=== PATIENT | female | born 1945 | race Caucasian/White ===

== ENCOUNTER 2024-11-20 16:15 | Emergency (ER) | payer MEDICARE, MEDICAID, SELFPAY ==
[2024-11-20] VITALS (33 sets, daily range): BP systolic 84–134; BP diastolic 41–112; PULSE 73–132; RESP 15–33; TEMP 36.5–36.8; O2SAT 90–96; BMI 31.6
--- NOTE | 2024-11-20 16:58 | EX.ED.DYSGE1 ---
HPI History of Present Illness Chief Complaint: Abn Labs [facility] Medical History (Updated 11/20/24 @ 16:25 by Kumar Stratton) Urinary incontinence Atrial fibrillation Heart failure Dementia Type 2 diabetes mellitus with diabetic neuropathy, unspecified Chronic kidney disease, stage 2 (mild) Unspecified dementia, moderate, without behavioral disturbance, psychotic disturbance, mood disturbance, and anxiety Atherosclerotic heart disease of unga coronary artery without angina pectoris Home Medications ?Medication ?Instructions ?Recorded ?Last Taken ?Type apixaban 5 mg tablet (Eliquis) 5 mg PO BID 07/10/17 Unknown History citalopram 20 mg tablet 20 mg PO DAILY 07/10/17 Unknown History clopidogrel 75 mg tablet 75 mg PO DAILY 07/10/17 Unknown History furosemide 20 mg tablet 20 mg PO DAILY 07/10/17 Unknown History levothyroxine 50 mcg tablet 50 mcg PO DAILY 07/10/17 Unknown History lisinopril 40 mg tablet (Zestril) 40 mg PO DAILY 07/10/17 Unknown History metformin 850 mg tablet 850 mg PO BID 07/10/17 Unknown History metoprolol tartrate 50 mg tablet 50 mg PO DAILY 07/10/17 Unknown History Allergy/AdvReac Type Severity Reaction Status Date / Time No Known Allergies Allergy Verified 07/10/17 05:17 Social History Smoking Status: Never smoker EXAM Physical Exam Const Vital Signs: 11/20/24 16:15 11/20/24 16:21 11/20/24 16:27 Temperature 97.7 F L 97.7 F L Temperature Source Oral Oral Pulse Rate 93 93 Respiratory Rate 21 H 21 H Respiratory Effort Normal Respiratory Pattern Normal Blood Pressure 103/41 L 103/41 L Blood Pressure Mean 61 61 Pulse Ox 93 93 Oxygen Delivery Method Room Air Room Air 11/20/24 16:59 11/20/24 17:00 11/20/24 17:15 Temperature Temperature Source Pulse Rate 74 84 94 Respiratory Rate 16 17 17 Respiratory Effort Respiratory Pattern Blood Pressure 110/43 L Blood Pressure Mean 63 Pulse Ox 93 93 95 Oxygen Delivery Method 11/20/24 17:30 11/20/24 17:45 11/20/24 17:57 Temperature Temperature Source Pulse Rate 73 94 Respiratory Rate 16 18 Respiratory Effort Respiratory Pattern Blood Pressure 100/49 L 92/59 L Blood Pressure Mean 66 66 Pulse Ox 93 92 Oxygen Delivery Method Room Air Room Air 11/20/24 18:00 11/20/24 18:15 11/20/24 20:00 Temperature Temperature Source Pulse Rate 84 84 94 Respiratory Rate 15 18 16 Respiratory Effort Respiratory Pattern Blood Pressure 100/50 L 97/52 L 117/93 H Blood Pressure Mean 67 68 101 Pulse Ox 94 94 93 Oxygen Delivery Method Room Air 11/20/24 22:00 Temperature Temperature Source Pulse Rate 121 H Respiratory Rate 17 Respiratory Effort Respiratory Pattern Blood Pressure 107/62 Blood Pressure Mean 77 Pulse Ox 96 Oxygen Delivery Method Room Air MDM MDM MDM Narrative Medical decision making narrative: HISTORY OF PRESENT ILLNESS: 79-year-old female presents from [facility]. Per triage note patient is typically alert and oriented x 1 (self but not place or time). States patient is here for evaluation of elevated liver enzymes, BUN/creatinine. They note the patient is currently positive for influenza A and is on Tamiflu. REVIEW OF SYSTEMS: I cannot obtain a reliable review of system secondary to the patient's baseline dementia and alteration mental status PHYSICAL EXAM: Nursing triage notes reviewed, Vital signs reviewed Constitutional: please see mdm HENT: MMM Eyes: Pupils equal round and reactive to light, Extraocular muscles intact, no scleral icterus Neck: No stridor, no JVD, full neck ROM Lungs: Clear to auscultation, No wheezing or rales. No increased work of breathing, no conversational dyspnea, no accessory muscle use, no nasal flaring. No respiratory distress noted Heart: Regular rate and rhythm, No murmurs, No rubs and No gallops, 2+ distal pulses (radial, femoral, posterior tibial) in all extremities Abdomen: Soft, there was some elicited tenderness with palpation right upper quadrant. No apparent rigidity, rebound or guarding, no obvious peritoneal signs, no palpable pulsatile abdominal masses, no auscultated abdominal bruit : No CVAT Extremities: No edema Neuro: At baseline, alert and oriented x 1 (self but not place or time), no obvious cranial nerve deficits, moves all 4 extremities, appears to have sensation all 4 extremities, 2+ reflexes bilateral patella tendons. Skin: No rash or lesions noted, no jaundice MEDICAL DECISION MAKING: Chief Complaint: Abnormal labs External records reviewed: [facility]ed [facility] records: Reviewed recent laboratory evaluations Labs from today showed a BUN of 37, creatinine 1.4 (compared to labs from 11/13/2024 with a BUN of 29 creatinine 1.6) Showed AST of 227, ALT 59 alk phos 447, she is compared to labs from 11/13/2024 with AST 41, ALT of 18 alk phos 243) Factors affecting care: Dementia, A-fib on Eliquis, heart failure, type 2 diabetes, CKD 2, CAD Social determinants of health: elderly, jail resident History obtained from others: EMS Consults: Pharmacy - discussed tamiflu side effects including elevation in liver enzymes. MDM Narrative: The patient was initially hemodynamically stable, tachypneic at a respiratory rate of 21 otherwise saturating well 93% room air. Abdominal pain I considered the following differential diagnosis: Tamiflu induced transaminitis, baseline CKD, obstructive hepatobiliary disease I obtained a lab evaluation and right upper quadrant ultrasound to further assess the patient's hepatobiliary function ALL IMAGES (IF OBTAINED) HAVE BEEN PERSONALLY REVIEWED AND INTERPRETED BY MYSELF. CBC with leukocytosis suggestive of systemic inflammation, anemia, thrombocytopenia BMP with baseline CKD, no severe electrolyte abnormalities LFTs with elevation liver enzymes, no hyperbilirubinemia Lipase is wnl indicating no pancreatic inflammation. Right upper quadrant ultrasound was negative for acute surgical pathology I will recommend the patient discontinue Tamiflu as I suspected it is leading to a drug-induced hepatitis will request repeat labs in the next 2 to 3 days. The patient and/or family, caregivers express understanding. The patient and/or family, caregivers agrees with the plan. Shared decision making: I will have a discussion with the patient and or visitors regarding risk/benefits of further testing or admission. They will be made aware of of the risk/benefits inherent in this decision they will be given the opportunity to voice understanding. Total critical care time today provided was at least 0 minutes. This excludes separately billable procedures. Critical care time (if documented) is secondary to the patient having high probability of clinically significant/life threatening deterioration in the patient's condition which required my urgent intervention. Impression: 1. Influenza A 2. History of CKD 3. Drug-induced hepatitis Dispo: Discharge home This note was generated with [employer] dictation software. It may contain incorrect words, spelling, and punctuation that were not noted in review of the chart prior to signing. Lab Data Labs: Laboratory Results - last 24 hr 11/20/24 17:16 WBC 13.3 H RBC 3.85 L Hgb 11.9 L Hct 36.1 L MCV 93.8 MCH 30.9 MCHC 33.0 RDW Std Deviation 46.6 H RDW Coeff of Slim 13.7 Plt Count 248 MPV 11.0 Immature Gran % (Auto) 0.800 Neut % (Auto) 81.1 H Lymph % (Auto) 11.4 L Boyd % (Auto) 6.3 Eos % (Auto) 0.2 Baso % (Auto) 0.2 Absolute Neuts (auto) 10.7 H Absolute Lymphs (auto) 1.51 Nucleated RBC % 0 Sodium 133 Potassium 4.0 Chloride Direct 99 Carbon Dioxide 19.4 L Anion Gap 14 BUN 43 H Creatinine 1.69 H Estim Creat Clear Calc 26.60 Est GFR (MDRD) Non-Af 31 L BUN/Creatinine Ratio 25.7 H Glucose 123 H Calcium 8.5 Total Bilirubin 0.84 Direct Bilirubin 0.56 H AST 168 H ALT 62 H Alkaline Phosphatase 556 H Total Protein 6.7 Albumin 2.8 L Globulin 3.9 Lipase 21 Radiography Diagnostic Testing: Clinical Impression(s) from Imaging Studies Gallbladder Ultrasound 11/20/24 17:14 IMPRESSION: 1. Cholecystectomy with more than expected intrahepatic biliary dilatation. 2. Mild right hydronephrosis with renal atrophy. Reading [facility] Discharge Plan Triage Chief Complaint: Abn Labs ED Provider: Elliott Matias Dx/Rx/DC Orders Prescriptions: No Action metformin 850 MG tablet 850 mg PO BID clopidogrel 75 MG tablet 75 mg PO DAILY citalopram 20 MG tablet 20 mg PO DAILY levothyroxine 50 MCG tablet 50 mcg PO DAILY metoprolol tartrate 50 MG tablet 50 mg PO DAILY furosemide 20 MG tablet 20 mg PO DAILY lisinopril [Zestril] 40 MG tablet 40 mg PO DAILY apixaban [Eliquis] 5 MG tablet 5 mg PO BID Primary Care Provider: Care Physician,No Primary Referrals: [facility] Doctor,Out of [Non-Staff] - Print Language: Prydeinig
--- NOTE | 2024-11-20 17:14 | US_ITS ---
PROCEDURE: GALLBLADDER REASON FOR EXAM: Elevated liver enzymes COMPARISON: None FINDINGS: Study is limited to body habitus and bowel gas artifact Liver: Grossly normal size and echotexture. It measures 15.4 cm. Gallbladder: Surgically absent. There is more than expected intrahepatic biliary dilatation status post cholecystectomy Common bile duct: Normal measuring 3.7 mm. Pancreas: Visualized portions are sonographically unremarkable. The right kidney measures 7.2 x 2.9 x 3.4 cm and demonstrates atrophy and cortical thinning. There is also mild hydronephrosis no right upper quadrant ascites. US/Gallbladder IMPRESSION: 1. Cholecystectomy with more than expected intrahepatic biliary dilatation. 2. Mild right hydronephrosis with renal atrophy. Reading Location: [facility]
[2024-11-20] MEDS: Ondansetron 4 MG/2 ML Vial IV (17:19)
[2024-11-20 17:23] LABS: Absolute Lymphocyte Count 1.51 X10^3/uL (0.83-4.51); Absolute Neutrophil Count 10.7 X10^3/uL (2.0-7.7); Basophil# 0.03 X10^3/uL; Basophil% 0.2 % (0-1); Eosinophil# 0.03 X10^3/uL; Eosinophils% 0.2 % (0-5); Hematocrit 36.1 % (37-47); Hemoglobin 11.9 g/dL (12.0-15.0); Lymphocyte # 1.51 X10^3/ul (0.83-4.51); Lymphocyte % 11.4 % (19-41); Mean Corpuscular Hgb 30.9 pg (27.0-32.0); Mean Corpuscular Volume 93.8 fL (81-99); Monocyte# 0.83 X10^3/uL; Monocyte% 6.3 % (0-10); NRBC Flagged by Analyzer 0 % (0-5); Neutrophil # 10.74 X10^3/uL (2.7-7.7); Neutrophil % 81.1 % (47-70); Platelet Count 248 K/mm3 (150-450); RBC Distribution Width CV 13.7 % (11.6-14.6); RBC Distribution Width SD 46.6 fl (35.1-43.9); Red Blood Count 3.85 M/mm3 (4.2-5.4); White Blood Count 13.3 K/mm3 (4.4-11.0)
--- NOTE | 2024-11-20 17:25 | ED.RN ---
ATTEMPTED TO CALL [facility] FOR FACE SHEET AND MAR. NO ANSWER AT THIS TIME.
[2024-11-20 17:53] LABS: AST(SGOT) 168 U/L (<=31); Alanine Aminotransfer ALT/SGPT 62 U/L (<=34); Albumin, Serum 2.8 g/dL (3.4-4.8); Alkaline Phosphatase 556 U/L (35-104); Anion Gap 14 (5-15); BUN 43 mg/dL (4-19); BUN/Creat Ratio 25.7 RATIO (10-20); Bilirubin, Direct 0.56 mg/dL (0.00-0.30); Calcium 8.5 mg/dL (7.6-11.0); Carbon Dioxide 19.4 mmol/L (22.0-29.0); Chloride 99 mmol/L (96-108); Creatinine, Serum 1.69 mg/dL (0.70-1.20); EST Glomerular Filtration Rate 31 (>60); Globulin 3.9 g/dL (2.2-4.2); Glucose 123 mg/dL (70-99); Lipase 21 U/L (13-75); Protein, Total 6.7 g/dL (5.9-8.4); Sodium Level 133 mmol/L (133-145); Total Bilirubin 0.84 mg/dL (0.00-1.30)
--- NOTE | 2024-11-20 18:16 | ED.RN ---
SPOKE W/ [facility]. THEY WILL FAX A FACE SHEET AND MAR
--- NOTE | 2024-11-20 19:02 | ED.RN ---
190: ULTRASOUND CALLED AND NOTIFIED THIS NURSE THAT WE ARE EXPERIENCING SOME TECHNICAL DIFFICULTIES. THE FIRST ULTRASOUND IS NOT WANTING TO CROSSOVER. CAN WE TAKE HER, SO WE CAN USE A DIFFERENT MACHINE?. PROVIDER NOTIFIED. RESPONSE OK 1902: ULTRASOUND AT BEDSIDE TAKING PT. TO IMAGING.
[2024-11-21] VITALS (15 sets, daily range): BP systolic 66–134; BP diastolic 33–101; PULSE 64–143; RESP 14–21; O2SAT 89–98
== END 2024-11-21 03:30 | disposition home or self-care (01) ==
PROVIDERS: Emergency Provider Emergency Medicine; Visit Provider Emergency Medicine
DX: R94.5 Abnormal results of liver function studies (principal); I50.9 Heart failure, unspecified; F03.90 Unspecified dementia, unspecified severity, without behavioral disturbance, psychotic disturbance, mood disturbance, and anxiety; I48.91 Unspecified atrial fibrillation; E11.22 Type 2 diabetes mellitus with diabetic chronic kidney disease; J10.1 Influenza due to other identified influenza virus with other respiratory manifestations; I25.10 Atherosclerotic heart disease of native coronary artery without angina pectoris; N18.2 Chronic kidney disease, stage 2 (mild); K75.9 Inflammatory liver disease, unspecified; Z79.01 Long term (current) use of anticoagulants; Z79.899 Other long term (current) drug therapy; Z79.02 Long term (current) use of antithrombotics/antiplatelets; Z79.84 Long term (current) use of oral hypoglycemic drugs
CPT/HCPCS: 76705; 80048; 80076; 83690; 85025; 96374; 99285; A4216; J2405